=== PATIENT | female | born 1975 | race Two or more races ===

== ENCOUNTER 2017-07-31 08:25 | Outpatient (CLI) | payer OTHER ==
[~2017-07-31 08:25] MED LIST: COZAAR100 MG; SIMVASTATIN20 MG; WELLBUTRIN XL300 MG
== END 2017-07-31 08:31 | disposition home or self-care (01) ==
LOC: RAD 08:25
DX: E03.8 Other specified hypothyroidism (principal); K57.30 Diverticulosis of large intestine without perforation or abscess without bleeding; Z12.31 Encounter for screening mammogram for malignant neoplasm of breast; N60.29 Fibroadenosis of unspecified breast

== ENCOUNTER 2017-08-26 11:52 | Outpatient (CLI) | payer OTHER | END 2017-08-26 11:57 | disposition home or self-care (01) | LOC: SONOGRAMA 11:52 | DX: N60.11 Diffuse cystic mastopathy of right breast (principal); N60.12 Diffuse cystic mastopathy of left breast; N63.21 Unspecified lump in the left breast, upper outer quadrant ==

== ENCOUNTER 2017-08-30 13:00 | Outpatient (CLI) | payer OTHER | END 2017-08-30 13:02 | disposition home or self-care (01) | LOC: SONOGRAMA 13:00 | DX: N60.11 Diffuse cystic mastopathy of right breast (principal); N60.12 Diffuse cystic mastopathy of left breast ==

== ENCOUNTER 2017-09-10 12:00 | Outpatient (CLI) | payer OTHER ==
[2017-09-10] MEDS ORDERED: NORVASC2.5 M1 PO (14:03)
== END 2017-09-10 12:16 | disposition home or self-care (01) ==
LOC: RAD 12:00
DX: J45.909 Unspecified asthma, uncomplicated (principal); I10 Essential (primary) hypertension; Z01.818 Encounter for other preprocedural examination

== ENCOUNTER → 2017-09-13 | Day surgery (SDC) | payer OTHER ==
[~2017-09-13] MED LIST changes: +NORVASC2.5 M1 PO
== END | disposition home or self-care (01) ==
LOC: CIR.AMB 06:52
DX: D24.1 Benign neoplasm of right breast (principal); N63.42 Unspecified lump in left breast, subareolar